=== PATIENT | male | born 1995 | race Caucasian/White ===

== ENCOUNTER 2020-12-08 23:26 | Emergency (ER) | payer OTHER ==
[2020-12-09] MEDS ORDERED: NORFLEX 100 MG100 MG PO (00:06)
[2020-12-09] MEDS ORDERED: LODINE CAP 300300 MG PO (00:06)
== END 2020-12-09 00:14 | disposition home or self-care (01) ==
LOC: ER1 23:26
DX: S83.92XA Sprain of unspecified site of left knee, initial encounter (principal); W01.0XXA Fall on same level from slipping, tripping and stumbling without subsequent striking against object, initial encounter
CPT/HCPCS: 73564; 99283